=== PATIENT | male | born 1950 ===

== ENCOUNTER 2018-09-16 11:01 | Emergency (ER) | payer MEDICARE, OTHER ==
[2018-09-16 11:19] VITALS: BP 120/78; PULSE 53; RESP 20; TEMP 97.6; O2SAT 98
== END 2018-09-16 11:52 | disposition home or self-care (01) | DRG 813 ==
LOC: ED 11:01
DX: R23.3 Spontaneous ecchymoses (principal)
CPT/HCPCS: 99282